=== PATIENT | female | born 1945 | race Caucasian/White ===

== ENCOUNTER 2016-06-07 07:45 | Outpatient (CLI) | payer MEDICARE ==
[2016-06-07 08:20] LABS: Hemoglobin A1c 6.9 % (4.0-6.0)
[2016-06-07 09:02] LABS: ALT (SGPT) 28 U/L (0-55); AST (SGOT) 22 U/L (5-34); Alkaline Phosphatase 68 U/L (40-150); Anion Gap 16 mmol/L (10-20); BUN (Urea Nitrogen) 17 mg/dL (9.8-20.1); Bilirubin, Direct 0.1 mg/dL (0.1-0.3); Bilirubin, Total 0.3 mg/dL (0.2-1.2); Calc. Creatinine Clearance 0 mL/min (70-130); Carbon Dioxide 25 mmol/L (23-31); Cardiac Risk 2.6 (Less than 4.5); Chloride 107 mmol/L (98-107); Cholesterol 146 mg/dL (< 200 Desired); Estimated GFR-MDRD 69; Glucose 123 mg/dL (83-110); HDL Cholesterol 56 mg/dL (>60 Neg Risk); LDL Cholesterol, Calculated 63 mg/dL; Potassium 4.1 mmol/L (3.5-5.1); Sodium 144 mmol/L (136-145); Triglycerides 134 mg/dL (Less than 150)
== END 2016-06-07 07:46 | disposition home or self-care (01) ==
LOC: MADLABBHPM 07:45
PROVIDERS: ATTEND Family Medicine
DX: E11.9 Type 2 diabetes mellitus without complications (principal)
CPT/HCPCS: 36415; 80048; 80061; 80076; 83036

== ENCOUNTER 2016-10-05 06:57 | Outpatient (CLI) | payer MEDICARE ==
[2016-10-05 07:57] LABS: ALT (SGPT) 26 U/L (8-55); AST (SGOT) 21 U/L (5-34); Albumin 4.3 g/dL (3.4-4.8); Alkaline Phosphatase 65 U/L (40-150); Anion Gap 13 mmol/L (10-20); BUN (Urea Nitrogen) 14 mg/dL (9.8-20.1); Bilirubin, Direct 0.2 mg/dL (0.1-0.3); Bilirubin, Total 0.4 mg/dL (0.2-1.2); Calc. Creatinine Clearance 0 mL/min (70-130); Calcium 9.5 mg/dL (7.8-10.44); Carbon Dioxide 28 mmol/L (23-31); Cardiac Risk 2.5 (Less than 4.5); Chloride 106 mmol/L (98-107); Cholesterol 144 mg/dl (< 200 Desired); Estimated GFR-MDRD 64; Glucose 125 mg/dL (83-110); HDL Cholesterol 58 mg/dL (>60 Neg Risk); LDL Cholesterol, Calculated 60 mg/dL; Potassium 4.3 mmol/L (3.5-5.1); Protein, Total 6.6 g/dL (6.0-8.3); Sodium 143 mmol/L (136-145); Triglycerides 132 mg/dL (Less than 150)
[2016-10-05 08:12] LABS: #Basophils 0.1 thou/uL (0.0-0.2); #Eosinphils 0.6 thou/uL (0.0-0.7); #Lymphocytes 3.5 thou/uL (1.20-3.40); #Monocytes 0.4 thou/uL (0.11-0.59); #Neutrophils 3.4 thou/uL (1.40-6.50); %Basophils 1.1 % (0.0-1.0); %Eosinophils 7.3 % (0.0-10.0); %Lymphocytes 43.7 % (21.0-51.0); %Monocytes 5.5 % (0.0-10.0); %Neutrophils 42.4 % (42.0-75.0); Hemoglobin 15.4 g/dL (12.0-16.0); Mean Corpuscular HGB CONC 34.1 g/dL (32.0-36.0); Mean Corpuscular Hemoglobin 31.6 pg (27.0-31.0); Mean Corpuscular Volume 92.7 fl (81.0-99.0); Mean Platelet Volume 6.9 fL (7.4-10.4); Platelet Count 237 thou/uL (130-400); RBC Distribution Width 12.4 % (11.5-14.5); Red Blood Cell (RBC) Count 4.87 mill/uL (4.20-5.40)
[2016-10-05 17:27] LABS: Creatinine, Urine 195.37 mg/dL (47-110); Microalbumin Urine 1.9 mg/dL (0.5-50.0); Microalbumin/Creat Ratio 9.7 mg/g (Less than 30)
== END 2016-10-05 06:58 | disposition home or self-care (01) ==
LOC: MADLAB 06:57
PROVIDERS: ATTEND Family Medicine
DX: E03.9 Hypothyroidism, unspecified (principal); E11.9 Type 2 diabetes mellitus without complications; E53.8 Deficiency of other specified B group vitamins; I47.1 Supraventricular tachycardia
CPT/HCPCS: 36415; 80048; 80061; 80076; 82043; 82607; 83036; 84443; 85025

== ENCOUNTER 2017-01-17 07:31 | Outpatient (CLI) | payer MEDICARE ==
[2017-01-17 08:28] LABS: ALT (SGPT) 26 U/L (8-55); AST (SGOT) 22 U/L (5-34); Alkaline Phosphatase 59 U/L (40-150); Anion Gap 14 mmol/L (10-20); BUN (Urea Nitrogen) 21 mg/dL (9.8-20.1); Bilirubin, Direct 0.2 mg/dL (0.1-0.3); Bilirubin, Total 0.4 mg/dL (0.2-1.2); Calc. Creatinine Clearance 0 mL/min (70-130); Calcium 9.6 mg/dL (7.8-10.44); Carbon Dioxide 26 mmol/L (23-31); Cardiac Risk 2.1 (Less than 4.5); Chloride 108 mmol/L (98-107); Cholesterol 114 mg/dl (< 200 Desired); Estimated GFR-MDRD 64; Glucose 104 mg/dL (83-110); HDL Cholesterol 54 mg/dL (>60 Neg Risk); LDL Cholesterol, Calculated 43 mg/dL; Potassium 3.9 mmol/L (3.5-5.1); Protein, Total 6.4 g/dL (6.0-8.3); Sodium 144 mmol/L (136-145); Triglycerides 84 mg/dL (Less than 150)
== END 2017-01-17 07:32 | disposition home or self-care (01) ==
LOC: MADLABBHPM 07:31
PROVIDERS: ATTEND Family Medicine
DX: E11.9 Type 2 diabetes mellitus without complications (principal); E78.00 Pure hypercholesterolemia, unspecified
CPT/HCPCS: 36415; 80048; 80061; 80076; 83036

== ENCOUNTER 2017-02-18 11:23 | Emergency (ER) | payer MEDICARE ==
[2017-02-18 11:53] LABS: Clarity Clear (Clear)
[2017-02-18 11:54] LABS: Bacteria/HPF None Seen HPF (None Seen); Bilirubin Negative (Negative); Blood, Urine Negative (Negative); Glucose, Urine (Dipstick) Negative (Negative); Leukocyte Negative (Negative); Nitrite Negative (Negative); Protein, Urine (Dipstick) Negative (Neg-Trace); RBC/HPF 0-3 HPF (0-3); Squamous Epithelial 0-3 HPF (0-3); Urobilinogen 0.2 mg/dL (0.2-1.0); WBC/HPF None Seen HPF (0-3); pH, Urine 7.5 (5.0-9.0)
[2017-02-18] MEDS ORDERED: Meclizine HCl 25 MG TAB ONE (12:15)
== END 2017-02-18 12:40 | disposition home or self-care (01) ==
LOC: MADERS 11:23
DX: R42 Dizziness and giddiness (principal); E11.9 Type 2 diabetes mellitus without complications; E03.9 Hypothyroidism, unspecified; Z79.899 Other long term (current) drug therapy; Z79.82 Long term (current) use of aspirin
CPT/HCPCS: 81001; 93005

== ENCOUNTER 2017-08-17 13:10 | Outpatient (CLI) | payer MEDICARE, MEDICAID ==
--- NOTE | 2017-08-17 13:44 | RAD ---
LEFT HIP TWO VIEWS: HISTORY: A 71-year-old female with a history of chronic pain without trauma. COMPARISON: 04/29/2015 FINDINGS: No acute fracture or dislocation. Mild degenerative changes. IMPRESSION: No fracture or dislocation. Mild degenerative changes. Stable from prior study. POS: [facility]
--- NOTE | 2017-08-17 13:54 | RAD ---
LEFT SHOULDER TWO VIEW SERIES: CLINICAL HISTORY: Chronic pain without trauma. FINDINGS: There is mild to moderate left AC joint osteoarthritis. No fracture or dislocation is seen. IMPRESSION: 1. No acute fracture of the left shoulder. 2. Osteoarthritis. POS: [facility]
== END 2017-08-17 13:11 | disposition home or self-care (01) ==
LOC: MADRAD 13:10
PROVIDERS: ATTEND Family Medicine
DX: M25.552 Pain in left hip (principal); M25.512 Pain in left shoulder; M19.90 Unspecified osteoarthritis, unspecified site; M16.12 Unilateral primary osteoarthritis, left hip

== ENCOUNTER 2019-03-05 16:04 | Emergency (ER) | payer MEDICARE ==
--- NOTE | 2019-03-05 17:01 | RAD ---
LEFT FOOT: 03/05/19 Three views. HISTORY: Injury. There is a transverse fracture involving the mid shaft of the first metatarsal with minimal displacem ent. The tarsals, metatarsals, and phalanges otherwise appear intact. IMPRESSION: Fracture first metatarsal. POS: [facility]
== END 2019-03-05 17:15 | disposition home or self-care (01) ==
LOC: MADERS 16:04
DX: S92.312A Displaced fracture of first metatarsal bone, left foot, initial encounter for closed fracture (principal); E03.9 Hypothyroidism, unspecified; E11.9 Type 2 diabetes mellitus without complications; W20.8XXA Other cause of strike by thrown, projected or falling object, initial encounter

== ENCOUNTER 2019-09-16 09:57 | Outpatient (CLI) | payer MEDICARE ==
--- NOTE | 2019-09-16 10:16 | RAD ---
Exam:Right foot 3 views HISTORY: Previous fracture. Persistent pain. COMPARISON: 03/05/2019 FINDINGS: Persistent lucency involving the proximal aspect of the first metatarsal. Findings suggest incomplete healing. Old healed second metatarsal fracture is noted. There is midfoot soft tissue swelling. Acute fractures are not appreciated. Lisfranc alignment is maintained. IMPRESSION: 1. Remote, healed second metatarsal fracture. 2. Remote first metatarsal fracture. There is callus formation. Persistent lucency is suggested. The possibility of incompletely healed fracture is raised. 3. Soft tissue swelling. Correlate for cellulitis. No radiographic evidence of acute fracture.
== END 2019-09-16 09:58 | disposition home or self-care (01) ==
LOC: MADRAD 09:57
PROVIDERS: ATTEND Family Medicine
DX: M79.672 Pain in left foot (principal); M79.89 Other specified soft tissue disorders; L84 Corns and callosities

== ENCOUNTER 2021-10-01 09:55 | Emergency (ER) | payer MEDICARE, MEDICAID | END 2021-10-01 11:05 | disposition home or self-care (01) | LOC: MADERS 09:55 | DX: H16.002 Unspecified corneal ulcer, left eye (principal); E03.9 Hypothyroidism, unspecified; E11.9 Type 2 diabetes mellitus without complications; Z79.899 Other long term (current) drug therapy | CPT/HCPCS: 99283 ==

== ENCOUNTER 2021-12-17 09:52 | Emergency (ER) | payer OTHER, MEDICAID | END 2021-12-17 10:42 | disposition home or self-care (01) | LOC: MADERS 09:52 | DX: K02.9 Dental caries, unspecified (principal); K03.81 Cracked tooth; H92.02 Otalgia, left ear; E03.9 Hypothyroidism, unspecified; E11.9 Type 2 diabetes mellitus without complications; Z79.899 Other long term (current) drug therapy | CPT/HCPCS: 99282 ==

== ENCOUNTER 2022-05-03 09:14 | Outpatient (CLI) | payer OTHER, MEDICAID | END 2022-05-03 09:15 | disposition home or self-care (01) | LOC: MADLAB 09:14 → MADRAD 09:15 | PROVIDERS: ATTEND Internal Medicine | DX: J45.41 Moderate persistent asthma with (acute) exacerbation (principal); J01.90 Acute sinusitis, unspecified | CPT/HCPCS: 70220; 71046 ==

== ENCOUNTER 2022-06-30 00:44 | Emergency (ER) | payer OTHER, MEDICAID ==
[2022-06-30] MEDS ORDERED: Lidocaine Viscous Sol 2% 15 ml UD Cup ONE (01:13)
[2022-06-30] MEDS ORDERED: Mag-Al Plus 1200 MG/1200 MG/120 MG/30 ML UDCUP ONE (01:13)
== END 2022-06-30 02:57 | disposition home or self-care (01) ==
LOC: MADERS 00:44
DX: K21.00 Gastro-esophageal reflux disease with esophagitis, without bleeding (principal); E11.9 Type 2 diabetes mellitus without complications; E03.9 Hypothyroidism, unspecified
CPT/HCPCS: 71046; 93005

== ENCOUNTER 2022-09-23 13:41 | Emergency (ER) | payer OTHER ==
[2022-09-23] MEDS ORDERED: diphenhydrAMINE 50 MG/ML VIAL ONE (14:46)
[2022-09-23] MEDS ORDERED: Metoclopramide HCl 10 MG/2 ML VIAL ONE (14:46)
[2022-09-23 14:56] LABS: #Basophils 0.1 thou/uL (0.0-0.2); #Eosinphils 0.2 thou/uL (0.0-0.7); #Lymphocytes 4.2 thou/uL (1.20-3.40); #Monocytes 0.6 thou/uL (0.11-0.59); #Neutrophils 9.2 thou/uL (1.40-6.50); %Basophils 0.7 % (0.0-1.0); %Eosinophils 1.2 % (0.0-10.0); %Lymphocytes 29.1 % (21.0-51.0); %Monocytes 4.5 % (0.0-10.0); %Neutrophils 64.5 % (42.0-75.0); Hemoglobin 13.3 g/dL (12.0-16.0); Mean Corpuscular HGB CONC 33.6 g/dL (32.0-36.0); Mean Corpuscular Hemoglobin 30.6 pg (27.0-31.0); Mean Corpuscular Volume 91.1 fl (78.0-98.0); Mean Platelet Volume 7.4 fL (7.4-10.4); Platelet Count 281 10x3/uL (130-400); RBC Distribution Width 12.2 % (11.5-14.5); Red Blood Cell (RBC) Count 4.35 mill/uL (4.20-5.40); White Blood Cell (WBC) Count 14.3 10x3/uL (4.8-10.8)
[2022-09-23 15:13] LABS: ALT (SGPT) 17 U/L (8-55); AST (SGOT) 20 U/L (5-34); Alkaline Phosphatase 62 U/L (40-110); Anion Gap 15 mmol/L (10-20); BUN (Urea Nitrogen) 19 mg/dL (9.8-20.1); Bilirubin, Total 0.3 mg/dL (0.2-1.2); Calc. Creatinine Clearance 0 mL/min (70-130); Calcium 9.3 mg/dL (7.8-10.44); Carbon Dioxide 21 mmol/L (23-31); Chloride 109 mmol/L (98-107); Estimated GFR 55; Globulin 2.3 g/dL (2.4-3.5); Glucose 212 mg/dL (83-110); Potassium 3.7 mmol/L (3.5-5.1); Protein, Total 6.3 g/dL (5.8-8.1); Sodium 141 mmol/L (136-145)
== END 2022-09-23 16:25 | disposition home or self-care (01) ==
LOC: MADERS 13:41
DX: R11.2 Nausea with vomiting, unspecified (principal); T38.3X5A Adverse effect of insulin and oral hypoglycemic [antidiabetic] drugs, initial encounter; E11.9 Type 2 diabetes mellitus without complications; E03.9 Hypothyroidism, unspecified; Z79.899 Other long term (current) drug therapy
CPT/HCPCS: 36415; 80053; 85025; 94760; 96361; 96374; 96375; J1200; J2765

== ENCOUNTER 2022-09-25 12:23 | Emergency (ER) | payer OTHER ==
[~2022-09-25 12:23] MED LIST: Iopamidol 370 76% 100 ML VIAL ONE
[2022-09-25] MEDS ORDERED: Sodium Chloride 0.9% 500 ML ONE (13:03)
[2022-09-25 13:05] LABS: #Basophils 0.1 thou/uL (0.0-0.2); #Lymphocytes 4.4 thou/uL (1.20-3.40); #Monocytes 0.7 thou/uL (0.11-0.59); #Neutrophils 12.6 thou/uL (1.40-6.50); %Basophils 0.5 % (0.0-1.0); %Eosinophils 0.1 % (0.0-10.0); %Lymphocytes 24.8 % (21.0-51.0); %Neutrophils 70.6 % (42.0-75.0); Hemoglobin 13.3 g/dL (12.0-16.0); Mean Corpuscular HGB CONC 33.6 g/dL (32.0-36.0); Mean Corpuscular Hemoglobin 30.4 pg (27.0-31.0); Mean Corpuscular Volume 90.4 fl (78.0-98.0); Mean Platelet Volume 8.3 fL (7.4-10.4); Platelet Count 244 10x3/uL (130-400); RBC Distribution Width 12.4 % (11.5-14.5); Red Blood Cell (RBC) Count 4.39 mill/uL (4.20-5.40); White Blood Cell (WBC) Count 17.9 10x3/uL (4.8-10.8)
[2022-09-25 13:27] LABS: ALT (SGPT) 24 U/L (8-55); AST (SGOT) 18 U/L (5-34); Albumin 3.8 g/dL (3.4-4.8); Alkaline Phosphatase 54 U/L (40-110); Anion Gap 16 mmol/L (10-20); BUN (Urea Nitrogen) 23 mg/dL (9.8-20.1); Bilirubin, Total 0.5 mg/dL (0.2-1.2); Calc. Creatinine Clearance 0 mL/min (70-130); Calcium 8.8 mg/dL (7.8-10.44); Carbon Dioxide 21 mmol/L (23-31); Chloride 98 mmol/L (98-107); Estimated GFR 41; Globulin 2.6 g/dL (2.4-3.5); Glucose 241 mg/dL (83-110); Lipase 46 U/L (8-78); Potassium 3.2 mmol/L (3.5-5.1); Protein, Total 6.4 g/dL (5.8-8.1); Sodium 132 mmol/L (136-145)
[2022-09-25] MEDS ORDERED: Piperacillin/Tazobactam 4.5 GM VIAL ONE (15:23)
[2022-09-25] MEDS ORDERED: Sodium Chloride 0.9% 1,000 ML ONE (15:23)
[2022-09-25] MEDS ORDERED: Sodium Chloride 0.9% 100 ML ONE (15:23)
== END 2022-09-25 18:27 | disposition short-term general hospital (02) ==
LOC: MADERS 12:23
DX: K52.9 Noninfective gastroenteritis and colitis, unspecified (principal); E11.9 Type 2 diabetes mellitus without complications; E03.9 Hypothyroidism, unspecified
CPT/HCPCS: 74177; 80053; 83605; 83690; 83735; 85025; 87040; 96365; J2543; J3490; J7030; J7050; Q9967

== ENCOUNTER 2023-04-16 11:43 | Outpatient (CLI) | payer OTHER, MEDICAID ==
[2023-04-16 12:10] LABS: ALT (SGPT) 27 U/L (8-55); AST (SGOT) 23 U/L (5-34); Albumin 4.3 g/dL (3.4-4.8); Alkaline Phosphatase 53 U/L (40-110); Anion Gap 15 mmol/L (10-20); BUN (Urea Nitrogen) 20 mg/dL (9.8-20.1); Bilirubin, Total 0.6 mg/dL (0.2-1.2); Calc. Creatinine Clearance 0 mL/min (70-130); Calcium 9.4 mg/dL (7.8-10.44); Carbon Dioxide 25 mmol/L (23-31); Cardiac Risk 3.1 (Less than 4.5); Chloride 107 mmol/L (98-107); Cholesterol 204 mg/dl (< 200 Desired); Estimated GFR 62; Globulin 2.3 g/dL (2.4-3.5); Glucose 120 mg/dL (83-110); HDL Cholesterol 65 mg/dL (>60 Neg Risk); LDL Cholesterol, Calculated 118 mg/dL; Potassium 4.4 mmol/L (3.5-5.1); Protein, Total 6.6 g/dL (5.8-8.1); Sodium 143 mmol/L (136-145); Triglycerides 106 mg/dL (Less than 150)
[2023-04-16 17:48] LABS: Hemoglobin A1c 7.4 % (4.0-6.0)
== END 2023-04-16 11:44 | disposition home or self-care (01) ==
LOC: MADLABBHPM 11:43
PROVIDERS: ATTEND Family Medicine
DX: E11.9 Type 2 diabetes mellitus without complications (principal); I10 Essential (primary) hypertension; E03.9 Hypothyroidism, unspecified
CPT/HCPCS: 80053; 80061; 83036; 84443

== ENCOUNTER 2023-09-18 19:43 | Emergency (ER) | payer OTHER, MEDICAID | END 2023-09-18 21:24 | disposition left against medical advice (07) | LOC: MADERS 19:43 | DX: Z53.21 Procedure and treatment not carried out due to patient leaving prior to being seen by health care provider (principal) ==

== ENCOUNTER 2023-10-29 14:11 | Emergency (ER) | payer OTHER | END 2023-10-29 15:45 | disposition home or self-care (01) | LOC: MADERS 14:11 | DX: R19.7 Diarrhea, unspecified (principal); E11.9 Type 2 diabetes mellitus without complications; I10 Essential (primary) hypertension | CPT/HCPCS: 74176 ==

== ENCOUNTER 2024-04-16 19:24 | Emergency (ER) | payer OTHER ==
[2024-04-16] MEDS ORDERED: Mag-Al 1200 mg/1200 mg/30 ML UDCUP ONE (19:30)
[2024-04-16] MEDS ORDERED: Lidocaine Viscous Sol 2% 15 ml UD Cup ONE (19:30)
== END 2024-04-16 20:26 | disposition home or self-care (01) ==
LOC: MADERS 19:24
DX: J02.9 Acute pharyngitis, unspecified (principal); E11.9 Type 2 diabetes mellitus without complications; I10 Essential (primary) hypertension; E03.9 Hypothyroidism, unspecified; K21.9 Gastro-esophageal reflux disease without esophagitis; Z79.84 Long term (current) use of oral hypoglycemic drugs; Z79.890 Hormone replacement therapy; Z79.899 Other long term (current) drug therapy
CPT/HCPCS: 99282